=== PATIENT | male | born 1960 | race Caucasian/White ===

== ENCOUNTER 2019-02-19 15:18 | Emergency (ER) | payer BC ==
[2019-02-19] MEDS ORDERED: Acetaminophen/HYDROcodone 325-5 MG Tab ONE (15:30)
[2019-02-19] MEDS ORDERED: Penicillin V Potassium 250 MG Tab ONE (15:30)
--- NOTE | 2019-02-19 15:54 | EDM.PDOC ---
ED HPI GENERAL MEDICAL PROBLEM - General Chief Complaint: General Stated Complaint: TOOTH PAIN Time Seen by Provider: 02/19/19 15:40 Source of Information: Reports: Patient History Limitations: Reports: No Limitations - History of Present Illness INITIAL COMMENTS - FREE TEXT/NARRATIVE: This patient presents to the ED for evaluation of dental pain. He states that it started yesterday and has gotten much worse today. He has not had a fever. He denies other symptoms or concerns. He is visiting from out of town and has no local dentist. 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 ED ROS GENERAL - Review of Systems Review Of Systems: See Below Constitutional: Reports: No Symptoms HEENT: Reports: Dental Pain Respiratory: Reports: No Symptoms Cardiovascular: Reports: No Symptoms GI/Abdominal: Reports: No Symptoms Musculoskeletal: Reports: No Symptoms Skin: Reports: No Symptoms Neurological: Reports: No Symptoms ED EXAM, GENERAL - Physical Exam Exam: See Below Exam Limited By: No Limitations General Appearance: Alert, WD/WN, No Apparent Distress Eye Exam: Bilateral Eye: PERRL Ears: Normal External Exam Nose: Normal Inspection Throat/Mouth: Normal Inspection, Normal Oropharynx, Other (Tooth 31 exquisitely tender, dark in color with swollen, erythematous gingiva surrounding. Cheek tender to touch.) Head: Atraumatic, Normocephalic Neck: Normal Inspection, Full Range of Motion Respiratory/Chest: No Respiratory Distress Neurological: Alert, Oriented Psychiatric: Normal Affect Skin Exam: Warm, Dry Course - Re-Assessments/Exams Free Text/Narrative Re-Assessment/Exam: 02/19/19 15:53 This patient presents for evaluation of dentalas detailed above. Evaluation today showed a dental abscess. Tooth 31 was acutely tender to percussion. There is no evidence of deep space infection of the neck or any sepsis-like syndrome. Given the concern for apical abscess and dental infection, the patient was given a prescription for Pen VK. Patient was given a prescription for oxycodone for pain control. The patient was strongly advised to seek dental care as soon as possible. I discussed with the patient that these medications did not represent definitive care for the tooth infection and definitive care by a dentist is needed. The patient is aware that I am not a dentist and that we do not refill pain medications in the ED. Patient was also given a dental resource sheet. The patient will return to the emergency department for fever, uncontrolled pain, inability to tolerate PO, or onset of facial swelling. The patient expressed understanding. Departure - Departure Time of Disposition: 15:55 Disposition: Home, Self-Care 01 Condition: Good Clinical Impression: Dental abscess - Discharge Information Instructions: Dental Abscess Forms: ED Department Discharge Care Plan Goals: Take antibiotic as prescribed, may take pain medication as directed or needed, or may continue taking the aleve 2 tabs every 12 hrs. Return to hospital or clinic with any questions or concerns.
== END 2019-02-19 15:51 | disposition home or self-care (01) ==
LOC: LB.ED 15:18
DX: K04.7 Periapical abscess without sinus (principal)
CPT/HCPCS: 99282; A9270-GY